=== PATIENT | male | born 1980 | race African-American/Black ===

== ENCOUNTER 2017-08-06 06:10 | Emergency (ER) | payer MEDICAID ==
[~2017-08-06] VITALS: Ht 170.2 cm; Wt 68.0 kg
[2017-08-06 06:27] VITALS: BP 135/90
--- NOTE | 2017-08-06 06:28 | NUR ---
PT BIB PARAMEDICS TO ER BED 11
--- NOTE | 2017-08-06 07:09 | NUR ---
36Y/M BIBA S/P SEIZURE. PT HAD SEIZURE AT HOME TONIC CLONIC X2 MIN. PER EMS PT WAS POST ICTAL ON SCENE. PT IS NOW AA&OX4, SEIZURE PRECAUTIONS IN PLACE. PT STATES HE IS COMPLIANT W/ MEDICATION. PT IN BED SIDE RAILS UP X2. ER MD AWARE OF PT STATUS.
[2017-08-06] MEDS ORDERED: levETIRAcetam 500 MG TAB PO ONE (07:30)
[2017-08-06] MEDS ORDERED: LORazepam 2 MG/ML VIAL IVP ONE (07:30)
[2017-08-06] MEDS ORDERED: DIVALPROEX 500 MG TABEC PO ONE (07:30)
--- NOTE | 2017-08-06 08:22 | NUR ---
medicated as ordered, seizure pads in place.
[2017-08-06 08:27] LABS: BASOPHILS # (AUTO) 0.2 K/uL (0.00-0.22); BASOPHILS % (AUTO) 4.3 % (0.0-2.0); EOSINOPHILS # (AUTO) 0.1 K/uL (0-0.4); EOSINOPHILS % (AUTO) 2.3 % (0.0-4.0); HEMATOCRIT 41.7 % (36-52); HEMOGLOBIN 14.4 g/dL (12.0-18.0); LYMPHOCYTES # (AUTO) 0.8 K/uL (2.0-11.5); LYMPHOCYTES % (AUTO) 20.7 % (20.5-51.1); MEAN CORPUSCULAR HEMOGLOBIN 33 pg (27-31); MEAN CORPUSCULAR HGB CONC 35 g/dL (33-37); MEAN CORPUSCULAR VOLUME 96 fL (80-94); MONOCYTES # (AUTO) 0.3 K/uL (0.8-1.0); MONOCYTES % (AUTO) 9.2 % (1.7-9.3); NEUTROPHILS # (AUTO) 2.4 K/uL (1.8-7.7); NEUTROPHILS % (AUTO) 63.5 % (42.2-75.2); PLATELET COUNT (AUTO) 155 K/uL (140-450); RED BLOOD CELL COUNT(AUTO) 4.34 MIL/uL (4.20-6.10); RED CELL DISTRIBUTION WIDTH 14.7 % (11.6-13.7); WHITE BLOOD COUNT (AUTO) 3.8 K/uL (4.8-10.8)
--- NOTE | 2017-08-06 08:41 | NUR ---
PT NOTED TO BE BRADYCARDIC 43BPM, ASYMPTOMATIC. ER MD INFORMED, NO ORDERS RECEIVED. GF ATBEDSIDE, STATES HE'S NORMALLY LOW AFTER A SEIZURE.
[2017-08-06 08:45] LABS: ANION GAP 12.2 (8-16); CARBON DIOXIDE 27.8 mmol/L (21-32); CREATININE 0.8 mg/dL (0.7-1.3)
[2017-08-06 08:47] LABS: MAGNESIUM 1.8 mg/dL (1.8-2.4)
--- NOTE | 2017-08-06 09:57 | NUR ---
NO ACUTE CHNAGES IN CONDITON, PT WITH YES CLOSED, IN NAD. RESP EVEN AND UNALBORED. NO SZ NOTED.
[2017-08-06 11:17] VITALS: BP 113/69
--- NOTE | 2017-08-06 11:18 | NUR ---
Patient discharged with v/s stable. Written and verbal after care instructions given and explained. Patient verbalized understanding. Ambulatory with steady gait. All questions addressed prior to discharge. Advised to follow up with PMD. [id number]
== END 2017-08-06 11:18 | disposition home or self-care (01) ==
LOC: MED 06:10
DX: G40.89 Other seizures (principal); Z91.14 Patient's other noncompliance with medication regimen; Z76.0 Encounter for issue of repeat prescription; Z88.0 Allergy status to penicillin
CPT/HCPCS: 36415; 70450; 71045; 80048; 80156; 82948; 83735; 85025; 93005; 96374; 99285; J2060; Q0092